=== PATIENT | male | born 1945 | race Caucasian/White ===

== ENCOUNTER → 2020-08-12 03:34 | Outpatient (CLI) | payer MEDICARE, SELFPAY ==
[2020-08-12 19:46] LABS: SARS-CoV-2 RNA PCR Negative
== END ==
PROVIDERS: PCP Internal Medicine Geriatric Medicine; Visit Provider Internal Medicine Gastroenterology
DX: Z01.812 Encounter for preprocedural laboratory examination (principal); Z20.822 Contact with and (suspected) exposure to COVID-19
CPT/HCPCS: C9803; U0003; U0005

== ENCOUNTER 2020-08-16 01:00 | Day surgery (SDC) | payer MEDICARE, SELFPAY ==
[2020-08-08 15:04] VITALS: BMI 32.5
[2020-08-16 08:20] VITALS: BP 123/68; PULSE 89; RESP 18; TEMP 36; O2SAT 98
[2020-08-16] MEDS: LACTATED RINGERS 1,000 ML 150 ML IV CONT (08:34)
--- NOTE | 2020-08-16 08:42 | WPDANESEPPF ---
Anes - Initial Pre Proc Eval Procedure: Operation Date: 08/16/20 09:00 Proposed Procedures p Esophagogastroduodenoscopy And Screening Colonoscopy - Shmuel Starkey MD Date/Time: 08/16/20 08:42 Surgeon: Shmuel Starkey MD Pre Op Diagnosis: Dysphagia, hx colon polyps, barretts esophagus Patient Data Age: 75 Gender: M Height: 6 ft Weight: 103.8 kg Last Vital Signs Temp 96.8 F L 08/16/20 08:20 Pulse 89 08/16/20 08:20 Resp 18 08/16/20 08:20 BP 123/68 08/16/20 08:20 Pulse Ox 98 08/16/20 08:20 Allergies Allergy/AdvReac Type Severity Reaction Status Date / Time No Known Allergies Allergy Verified 08/16/20 08:19 Home Medications Medication Instructions Recorded Confirmed Type aspirin 81 mg tablet,delayed 81 mg PO DAILY 05/15/20 08/08/20 History release dapagliflozin [Farxiga] 10 mg PO DAILY 08/08/20 08/08/20 History ergocalciferol (vitamin D2) 1,250 mcg PO WEEKLY 08/08/20 08/08/20 History [Vitamin D2] fenofibrate nanocrystallized 145 mg PO DAILY 08/08/20 08/08/20 History furosemide 20 mg PO DAILY 08/08/20 08/08/20 History pantoprazole 40 mg PO DAILY 08/08/20 08/08/20 History rosuvastatin 20 mg PO HS 08/08/20 08/08/20 History sacubitril-valsartan [Entresto] 1 tablet PO BID 08/08/20 08/08/20 History Patient hx anesthesia problems: none Family hx anesthesia problems: none PMFSH Past Medical History Medical History (Updated 08/16/20 @ 08:42 by Abraham Glynn MD) Adenomatous colon polyp Pearl esophagus Congestive heart failure (CHF) EF 40 per cent Hiatal hernia Hyperlipemia Hypertension Osteopenia Family History Family History Father Family history of diabetes mellitus in first degree relative Family history of coronary artery disease Mother Family history of malignant neoplasm of breast in first degree relative Other Family history of arthritis Hypertension Social History Social History (Reviewed 06/29/20 @ 08:50 by KIERSTEN Cannon Smoking packs per day: 2.5 Smoking cigarettes per day: 50.0 Years smoked: 30 Smoking pack-years: 75.00 Smoking status: Former smoker Tobacco type: cigarettes Smoking end date: 03/17/94 Alcohol intake: never Substance use: never Substance use type: does not use Living arrangements: with family Gender identity (if verbalized by the patient): Male Spiritual care concerns: No Anes - Eval Final PreProcedure Day of Procedure 08/16/20 08:42 Patient weight: obese Heart: regular rate and rhythm Lungs: clear to auscultation Airway: Mallampati scale class II Neurological: alert and oriented Last oral intake: >/= 8 hours ASA classification: III Emergent: no Anesthetic plan: proceed Anesthesia type and monitoring: general GIVS and standard monitoring Informed Consent: The patient's anesthetic plan and its attendant risks and benefits were discussed with the patient/family/POA. Questions were solicited and answers provided to the satisfaction of the patient/family/POA.
--- NOTE | 2020-08-16 08:53 | PM.HPGS ---
History of Present Illness History of Present Illness Consent: Risks, benefits, and alternatives have been discussed and questions answered. Patient agrees to proceed with procedure. Chief complaint: Dysphagia, hx colon polyps, barretts esophagus Narrative: Nic Louis is a 75 year old male here for egd and colonoscopy, had high grade dysplasia Pearl's (nodular area) successfully treated with EMR in 2018 at [facility] had follow-up EGD with no residual lesion, also had dilation of site with TTS balloon 20mm (had mild stenosis post-EMR) later in 2018, using protonix. Lately with dysphagia to solids. Also had colon polyps. Review of Systems Constitutional: Constitutional: Denies headache(s) and Denies weakness Eyes: Eyes: Denies blurry vision ENT: Reports Normal hearing present, Denies headache(s) and Denies neck pain Cardiovascular: Cardiovascular: Denies chest pain and Denies dyspnea Respiratory: Respiratory: Denies dyspnea Gastrointestinal: Gastrointestinal: Reports no additional gastrointestinal complaints Genitourinary: Genitourinary: Denies dysuria Musculoskeletal: Musculoskeletal: Denies neck pain Integumentary/Breasts: Skin/Breast: Denies dry skin Neurologic: Reports Normal hearing present, Denies headache(s) and Denies weakness Psychiatric: Psychiatric: Denies anxiety Endocrine: Endocrine: Denies change in body appearance Hematologic/Lymphatic: Hematologic/Lymphatic: Denies easy bleeding Allergic/Immunologic: Allergic/Immunologic: Denies urticaria PMF Past Medical History Medical History (Updated 08/16/20 @ 08:54 by Shmuel Starkey MD) Adenomatous colon polyp Pearl esophagus Congestive heart failure (CHF) EF 40 per cent Dysphagia Hiatal hernia Hyperlipemia Hypertension Osteopenia Family History Family History Father Family history of diabetes mellitus in first degree relative Family history of coronary artery disease Mother Family history of malignant neoplasm of breast in first degree relative Other Family history of arthritis Hypertension Social History Social History Smoking packs per day: 2.5 Smoking cigarettes per day: 50.0 Years smoked: 30 Smoking pack-years: 75.00 Smoking status: Former smoker Tobacco type: cigarettes Smoking end date: 03/17/94 Alcohol intake: never Substance use: never Substance use type: does not use Living arrangements: with family Gender identity (if verbalized by the patient): Male Spiritual care concerns: No Meds Home Medications and Allergies Home Medications Medication Instructions Recorded Confirmed Type aspirin 81 mg tablet,delayed 81 mg PO DAILY 05/15/20 08/08/20 History release dapagliflozin [Farxiga] 10 mg PO DAILY 08/08/20 08/08/20 History ergocalciferol (vitamin D2) 1,250 mcg PO WEEKLY 08/08/20 08/08/20 History [Vitamin D2] fenofibrate nanocrystallized 145 mg PO DAILY 08/08/20 08/08/20 History furosemide 20 mg PO DAILY 08/08/20 08/08/20 History pantoprazole 40 mg PO DAILY 08/08/20 08/08/20 History rosuvastatin 20 mg PO HS 08/08/20 08/08/20 History sacubitril-valsartan [Entresto] 1 tablet PO BID 08/08/20 08/08/20 History Allergies Allergy/AdvReac Type Severity Reaction Status Date / Time No Known Allergies Allergy Verified 08/16/20 08:19 Vital Signs Vital Signs - 24 hr 08/16/20 08:20 Temperature 96.8 F L Pulse Rate 89 Respiratory Rate 18 Blood Pressure 123/68 Pulse Oximetry 98 Exam Const: General: comfortable and no acute distress HENMT: General nose exam: Normal nares present Eyes: General: appearance normal, both eyes and all related structures Neck: Neck: no JVD Resp: Auscultation: clear to auscultation bilaterally Cardio: Rate: regular rate Rhythm: regular rhythm GI: Inspection: non-distended GI Palp: Yes Soft to palpation
[2020-08-16] MEDS: BENZOCAINE (*SP) 60 ML SPRAY CAN (HURRICAINE) 1 SPRAY MUCOUS MEM (09:02)
[2020-08-16 09:32] VITALS: BP 124/73; PULSE 71; RESP 15; O2SAT 95
[2020-08-16 09:42] VITALS: BP 132/92; PULSE 72; RESP 15; O2SAT 98
[2020-08-16 09:52] VITALS: BP 124/82; PULSE 69; RESP 15; O2SAT 98
== END 2020-08-16 10:08 | disposition home or self-care (01) ==
PROVIDERS: PCP Internal Medicine Geriatric Medicine; Visit Provider Internal Medicine Gastroenterology
PROC: 0DJ08ZZ Inspection of Upper Intestinal Tract, Via Natural or Artificial Opening Endoscopic (ICD-10-PCS; CPT 43235; principal; 2020-08-16 09:00)
DX: Z12.11 Encounter for screening for malignant neoplasm of colon (principal); K63.89 Other specified diseases of intestine; D12.3 Benign neoplasm of transverse colon; K64.8 Other hemorrhoids; K21.00 Gastro-esophageal reflux disease with esophagitis, without bleeding; K22.2 Esophageal obstruction; K29.50 Unspecified chronic gastritis without bleeding; K44.9 Diaphragmatic hernia without obstruction or gangrene; I11.0 Hypertensive heart disease with heart failure; I50.9 Heart failure, unspecified; E78.5 Hyperlipidemia, unspecified; M85.80 Other specified disorders of bone density and structure, unspecified site; Z79.82 Long term (current) use of aspirin; Z87.891 Personal history of nicotine dependence; E66.9 Obesity, unspecified; Z68.31 Body mass index [BMI] 31.0-31.9, adult
CPT/HCPCS: 45385; 43249; 43239; 88305; 88312; C1726; C9803; J2704; J7120; U0003; U0005

== ENCOUNTER 2022-06-10 18:10 | Emergency (ER) | payer MEDICARE, SELFPAY ==
--- NOTE | ~2022-06-10 | XR_ITS ---
EXAMINATION: XR knee LT min 4V DATE: 06/10/2022 18:39 INDICATION: Left knee pain TECHNIQUE: Four views of the left knee were obtained. COMPARISON: 01/05/2008 FINDINGS: Alignment is normal. No fracture or osteochondral lesion. There is moderate tricompartmenta l osteoarthritis. No joint effusion/synovitis. There is soft tissue swelling of the knee. Calcified atherosclerosis is noted. IMPRESSION: 1. No acute osseous abnormality. Reviewed, dictated and finalized at location F.
--- NOTE | ~2022-06-10 | CT_ITS ---
EXAMINATION: CT brain wo con INDICATION: Head injury COMPARISON: None TECHNIQUE: Standard unenhanced head CT. The dose-length product (DLP) was 681.00 mGy-cm. The mA was a djusted according to patient size. Iterative reconstruction technique was employed. FINDINGS: There is no intracranial hemorrhage, acute infarction, or abnormal mass lesion. The ventric les are normal. There is no abnormal mass effect or midline shift. The tai-white matter differentiat ion is normal. The basal cisterns are patent. The orbits are normal. There is a left periorbital ko faraz. The paranasal sinuses, mastoids and calvarium are normal. IMPRESSION: 1. No acute intracranial abnormality. Reviewed, dictated and finalized at location F.
--- NOTE | ~2022-06-10 | CT_ITS ---
EXAMINATION: CT facial bones wo con DATE: 06/10/2022 18:46 INDICATION: Head injury TECHNIQUE: Computed tomography (CT) of the facial bones and maxillofacial region was performed withou t intravenous contrast. The dose-length product (DLP) was 443.17 mGy-cm. Automated exposure control a nd iterative reconstruction technique were employed. COMPARISON: None. FINDINGS: There is a left periorbital and frontal scalp hematoma. No facial fracture is identified. T he globes and orbits are normal. There is mild mucosal thickening of the right maxillary sinus. Moder ate cervical spondylosis is noted. IMPRESSION: 1. Left periorbital and frontal scalp hematoma without acute facial fracture. Reviewed, dictated and finalized at location F.
[2022-06-10 18:07] VITALS: BP 113/73; PULSE 72; RESP 16; TEMP 36.8; O2SAT 100
--- NOTE | 2022-06-10 18:17 | PC.NURSE ---
Patient does not have a med list. Patient unsure of what medications he is on and cannot verify which blood thinner he takes. [facility] in [place], [place] contacted.
--- NOTE | 2022-06-10 18:25 | ED.FALL ---
HPI - Fall General Chief Complaint: Fall Stated Complaint: GLF, head inj Time Seen by Provider: 06/10/22 18:10 History of Present Illness HPI Narrative: 77-year-old male reports for a mechanical fall that occurred 20 minutes prior to arrival. Patient states he was at [facility] and was walking back to his truck which was parked on a hill, the cart started rolling away and he went to jone after it and tripped over his feet, landing on his face and head on the concrete. He is reporting a frontal headache over his left brow with 2 lacerations, abrasions to his left hand and nose, left knee pain. Denies LOC. Last tetanus shot unknown. States he is on a blood thinner but is unsure the name. Denies numbness, weakness, tingling, vision changes, neck pain or back pain, chest pain or abdominal pain, hip pain. Related Data Home Medications Medication Instructions Recorded Confirmed aspirin 81 mg tablet mg PO DAILY 06/10/22 cyclobenzaprine 10 mg tablet 10 mg PO TID PRN Pain 06/10/22 dapagliflozin 10 mg tablet mg 06/10/22 (Farxiga) hyoscyamine sulfate 0.125 mg mg 06/10/22 sublingual tablet oxycodone-acetaminophen 10 mg-325 tablet 06/10/22 mg tablet pravastatin 40 mg tablet 40 mg PO DAILY 06/10/22 sacubitril 49 mg-valsartan 51 mg tablet 06/10/22 tablet (Entresto) Allergies Allergy/AdvReac Type Severity Reaction Status Date / Time No Known Allergies Allergy Verified 06/10/22 18:14 Review of Systems Review of Systems: CONSTITUTIONAL: Denies fever, chills EYES: Denies visual changes, redness, or discharge. ENT: Denies rhinorrhea, congestion, sore throat, or otalgia. CARDIOVASCULAR: Denies chest pain, palpitations, or edema. RESPIRATORY: Denies cough or dyspnea. GASTROINTESTINAL: Denies abdominal pain, nausea, vomiting, or diarrhea. GENITOURINARY: Denies dysuria or hematuria. SKIN: Denies rash or itching. MUSCULOSKELETAL: Denies back pain, joint pain, or myalgia. NEUROLOGIC: Denies numbness, dizziness, or weakness. PSYCHIATRIC: Denies anxiety or depression. [facility] Past Medical History Medical History Adenomatous colon polyp Peral esophagus Congestive heart failure (CHF) EF 40 per cent Dysphagia Hiatal hernia Hyperlipemia Hypertension Osteopenia Family History Family History Father Family history of diabetes mellitus in first degree relative Family history of coronary artery disease Mother Family history of malignant neoplasm of breast in first degree relative Other Family history of arthritis Hypertension Social History Social History Smoking packs per day: 2.5 Smoking cigarettes per day: 50.0 Years smoked: 30 Smoking pack-years: 75.00 Smoking status: Former smoker Tobacco type: cigarettes Smoking end date: 03/17/94 Alcohol intake: never Substance use: never Substance use type: does not use Living arrangements: with family Occupation/Education: retired Gender identity (if verbalized by the patient): Male Spiritual care concerns: No Exam Narrative: GENERAL: Well-appearing, well-nourished, and in no acute distress. Patient resting comfortably in the exam bed. He is pleasant and conversational. HEAD: Normocephalic. No lesions or abrasions to scalp. Tenderness over the left brow bone. No tenderness to nose or orbits. No muniz signs or raccoon eyes EYES: PERRLA and EOMI. no pain with EOMs. ENT: Nares clear, no rhinorrhea or epistaxis. Mucous membranes moist. Oropharynx without tonsillar hypertrophy exudate or other lesions. Bilateral TMs pearly tai nonbulging. No hemotympanum. NECK: Supple. No adenopathy or masses. No midline vertebral tenderness, step-offs or deformities. No paraspinous tenderness. CHEST: Clear to auscultation. No respiratory distress. No wheezes rales or rhonc
[2022-06-10] MEDS: TETANUS,DIPHTHERIA,AC PERTUSSIS ADULT (0.5 ML) BOOSTRIX IM (19:07)
[2022-06-10] MEDS: LIDOCAINE HCL 1% LOCAL INJ 10 ML VIAL 5 ML INFILTRATE (19:36)
[2022-06-10] MEDS: ACETAMINOPHEN 500 MG TABLET 1000 MG PO (20:01)
== END 2022-06-10 20:42 | disposition home or self-care (01) ==
PROVIDERS: Emergency Provider Physician Assistant; PCP Internal Medicine Geriatric Medicine
DX: S01.112A Laceration without foreign body of left eyelid and periocular area, initial encounter (principal); Z23 Encounter for immunization; E78.5 Hyperlipidemia, unspecified; I50.9 Heart failure, unspecified; I11.0 Hypertensive heart disease with heart failure; K22.70 Barrett's esophagus without dysplasia; M85.80 Other specified disorders of bone density and structure, unspecified site; Z86.010 Personal history of colon polyps; Z87.891 Personal history of nicotine dependence; W01.0XXA Fall on same level from slipping, tripping and stumbling without subsequent striking against object, initial encounter
CPT/HCPCS: 12011; 70450; 70486; 73564; 90471; 90715; 99284; A9270

== ENCOUNTER 2022-09-25 00:44 | Day surgery (SDC) | payer MEDICARE, SELFPAY ==
[2022-07-05 09:12] VITALS: BMI 31.4
--- NOTE | 2022-07-26 06:44 | SUR.PREOP ---
Patients called and states that Nic is very dizzy and cant hardly stand up this morning. Instructed to come to ER if symptoms worsen. verbalizes understanding.
[2022-09-12 13:30] VITALS: BMI 31.4
[2022-09-25 09:03] VITALS: BP 101/68; PULSE 72; RESP 18; TEMP 36.1; O2SAT 100
[2022-09-25] MEDS: LACTATED RINGERS 1,000 ML 150 ML IV CONT (09:17)
--- NOTE | 2022-09-25 09:35 | WPDANESEPPF ---
Anes - Initial Pre Proc Eval Procedure: Operation Date: 09/25/22 10:15 Proposed Procedures p Esophagogastroduodenoscopy - Shmuel Starkey MD Date/Time: 09/25/22 09:35 Surgeon: Shmuel Starkey MD Pre Op Diagnosis: dysphagia Patient Data Age: 77 Gender: M Height: 1.83 m Weight: 92.3 kg Last Vital Signs Temp 97 F L 09/25/22 09:03 Pulse 72 09/25/22 09:03 Resp 18 09/25/22 09:03 BP 101/68 09/25/22 09:03 Pulse Ox 100 09/25/22 09:03 O2 Del Method Room Air 09/25/22 09:03 Allergies Allergy/AdvReac Type Severity Reaction Status Date / Time No Known Allergies Allergy Verified 09/25/22 09:02 Home Medications Medication Instructions Recorded Confirmed Type aspirin 81 mg tablet 81 mg PO DAILY 06/10/22 07/05/22 History dapagliflozin propanediol 10 mg 10 mg PO DAILY 06/10/22 07/05/22 History tablet (Farxiga) hyoscyamine sulfate 0.125 mg 0.125 mg sublingual DAILY 06/10/22 07/05/22 History sublingual tablet oxycodone-acetaminophen 10 mg-325 10 tablet PO PRN 06/10/22 07/05/22 History mg tablet pravastatin 40 mg tablet 40 mg PO DAILY 06/10/22 07/05/22 History sacubitril 49 mg-valsartan 51 mg 49 tablet PO BID 06/10/22 07/05/22 History tablet (Entresto) metoprolol succinate 200 mg 200 mg PO DAILY 07/05/22 07/17/22 History tablet,extended release 24 hr Patient hx anesthesia problems: none Family hx anesthesia problems: none Results Review: All pre-operative results and documents have been reviewed as part of the pre-operative evaluation. [facility] Past Medical History Medical History Adenomatous colon polyp Pearl esophagus Congestive heart failure (CHF) EF 40 per cent Dysphagia Hiatal hernia Hyperlipemia Hypertension Osteopenia Family History Family History Father Family history of diabetes mellitus in first degree relative Family history of coronary artery disease Mother Family history of malignant neoplasm of breast in first degree relative Other Family history of arthritis Hypertension Social History Social History Smoking packs per day: 2.5 Smoking cigarettes per day: 50.0 Years smoked: 30 Smoking pack-years: 75.00 Smoking status: Never smoker Tobacco type: cigarettes Smoking end date: 03/17/94 Alcohol intake: never Substance use: never Substance use type: does not use Living arrangements: with family Occupation/Education: retired Gender identity (if verbalized by the patient): Male Spiritual care concerns: No Anes - Eval Final PreProcedure Day of Procedure 09/25/22 09:36 Patient weight: normal Heart: regular rate and rhythm Lungs: clear to auscultation Airway: Mallampati scale class III Neurological: alert and oriented Last oral intake: >/= 8 hours ASA classification: III Emergent: no Anesthetic plan: proceed Anesthesia type and monitoring: general GIVS and standard monitoring Results Review: All pre-operative results and documents have been reviewed as part of the pre-operative evaluation. Informed Consent: The patient's anesthetic plan and its attendant risks and benefits were discussed with the patient/family/POA. Questions were solicited and answers provided to the satisfaction of the patient/family/POA.
--- NOTE | 2022-09-25 09:56 | PM.HPGS ---
History of Present Illness History of Present Illness Consent: Risks, benefits, and alternatives have been discussed and questions answered. Patient agrees to proceed with procedure. Chief complaint: dysphagia Narrative: Nic Louis is a 77 year old male here for another egd, had high grade dysplasia Pearl's (nodular area) successfully treated with EMR in 2018 at [facility] had follow-up EGD with no residual lesion, also had dilation of site with TTS balloon 20mm (had mild stenosis post-EMR) later in 2017, repeat EGD 2020 with no signs of Pearl's, had reflux and dilated up to 18mm. Review of Systems Constitutional: Constitutional: Denies headache(s) and Denies weakness Eyes: Eyes: Denies blurry vision ENT: Reports Normal hearing present, Denies headache(s) and Denies neck pain Cardiovascular: Cardiovascular: Denies chest pain and Denies dyspnea Respiratory: Respiratory: Denies dyspnea Gastrointestinal: Gastrointestinal: Reports no additional gastrointestinal complaints Genitourinary: Genitourinary: Denies dysuria Musculoskeletal: Musculoskeletal: Denies neck pain Integumentary/Breasts: Skin/Breast: Denies dry skin Neurologic: Reports Normal hearing present, Denies headache(s) and Denies weakness Psychiatric: Psychiatric: Denies anxiety Endocrine: Endocrine: Denies change in body appearance Hematologic/Lymphatic: Hematologic/Lymphatic: Denies easy bleeding Allergic/Immunologic: Allergic/Immunologic: Denies urticaria PMFSH Past Medical History Medical History Adenomatous colon polyp Pearl esophagus Congestive heart failure (CHF) EF 40 per cent Dysphagia Hiatal hernia Hyperlipemia Hypertension Osteopenia Family History Family History Father Family history of diabetes mellitus in first degree relative Family history of coronary artery disease Mother Family history of malignant neoplasm of breast in first degree relative Other Family history of arthritis Hypertension Social History Social History Smoking packs per day: 2.5 Smoking cigarettes per day: 50.0 Years smoked: 30 Smoking pack-years: 75.00 Smoking status: Never smoker Tobacco type: cigarettes Smoking end date: 03/17/94 Alcohol intake: never Substance use: never Substance use type: does not use Living arrangements: with family Occupation/Education: retired Gender identity (if verbalized by the patient): Male Spiritual care concerns: No Meds Home Medications and Allergies Home Medications Medication Instructions Recorded Confirmed Type aspirin 81 mg tablet 81 mg PO DAILY 06/10/22 07/05/22 History dapagliflozin propanediol 10 mg 10 mg PO DAILY 06/10/22 07/05/22 History tablet (Farxiga) hyoscyamine sulfate 0.125 mg 0.125 mg sublingual DAILY 06/10/22 07/05/22 History sublingual tablet oxycodone-acetaminophen 10 mg-325 10 tablet PO PRN 06/10/22 07/05/22 History mg tablet pravastatin 40 mg tablet 40 mg PO DAILY 06/10/22 07/05/22 History sacubitril 49 mg-valsartan 51 mg 49 tablet PO BID 06/10/22 07/05/22 History tablet (Entresto) metoprolol succinate 200 mg 200 mg PO DAILY 07/05/22 07/17/22 History tablet,extended release 24 hr Allergies Allergy/AdvReac Type Severity Reaction Status Date / Time No Known Allergies Allergy Verified 09/25/22 09:02 Vital Signs Vital Signs - 24 hr 09/25/22 09:03 Temperature 97 F L Pulse Rate 72 Respiratory Rate 18 Blood Pressure 101/68 Pulse Oximetry 100 Oxygen Delivery Room Air Exam Const: General: comfortable and no acute distress HENMT: Face/Nose/Sinus: Normal nares present Eyes: General: appearance normal, both eyes and all related structures Neck: Neck: no JVD Resp: Auscultation: clear to auscultation bilaterally Cardio: Rate: regular rate
[2022-09-25 10:12] VITALS: BP 113/54; PULSE 68; RESP 20; O2SAT 93
[2022-09-25 10:22] VITALS: BP 102/60; PULSE 62; RESP 18; O2SAT 97
[2022-09-25 10:32] VITALS: BP 108/61; PULSE 64; RESP 19; O2SAT 100
== END 2022-09-25 10:45 | disposition home or self-care (01) ==
PROVIDERS: PCP Internal Medicine Geriatric Medicine; Visit Provider Internal Medicine Gastroenterology
PROC: 0DJ08ZZ Inspection of Upper Intestinal Tract, Via Natural or Artificial Opening Endoscopic (ICD-10-PCS; CPT 43235; principal; 2022-09-25 10:15)
DX: K21.9 Gastro-esophageal reflux disease without esophagitis (principal); K22.2 Esophageal obstruction; K44.9 Diaphragmatic hernia without obstruction or gangrene; Z87.19 Personal history of other diseases of the digestive system; I11.0 Hypertensive heart disease with heart failure; I50.9 Heart failure, unspecified; E78.5 Hyperlipidemia, unspecified; Z79.82 Long term (current) use of aspirin; Z79.84 Long term (current) use of oral hypoglycemic drugs; Z87.891 Personal history of nicotine dependence
CPT/HCPCS: 43249; 88305; C1726; J2704; J7120

== ENCOUNTER 2023-01-21 09:50 | Outpatient (CLI) | payer MEDICARE, SELFPAY ==
--- NOTE | 2023-01-21 11:00 | NEURO_ITS ---
Impression: # Complains of numbness of left hand with decreased grasp. 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 # Abnormal Needle/EMG exam of left 1st DI and ADM with denervation changes. Nerve Conduction Studies Anti Sensory Summary Table Stim Site NR Peak (ms) P-T Amp (?V) Site1 Site2 Delta-P (ms) Dist (cm) Silvio (m/s) Left Median Anti Sensory (2-3nd Digit) Wrist 3.5 24.0 Wrist 2-3nd Digit 3.5 14.0 40 Wrist 4.0 33.7 Wrist 2-3nd Digit 3.5 14.0 40 Left Radial Anti Sensory (Base 1st Digit) Wrist 2.5 15.0 Wrist Base 1st Digit 2.5 0.0 Left Ulnar Anti Sensory (5th Digit) Wrist 3.7 22.9 Wrist 5th Digit 3.7 14.0 38 Motor Summary Table Stim Site NR Onset (ms) O-P Amp (mV) Site1 Site2 Delta-0 (ms) Dist (cm) Silvio (m/s) Left Median Motor (Abd Poll Brev) Wrist 3.8 1.2 Elbow Wrist 6.7 35.0 52 Elbow 10.5 0.3 Left Ulnar Motor (Abd Dig Minimi) Wrist 3.4 2.7 A Elbow Wrist 9.0 30.0 33 A Elbow 12.4 1.6 B Elbow Wrist 4.6 23.0 50 B Elbow 8.0 1.6 F Wave Studies NR F-Lat (ms) L-R F-Lat (ms) Left Median (Mrkrs) (Abd Poll Brev) 31.33 Left Ulnar (Mrkrs) (Abd Dig Min) 28.29 EMG Side Muscle Nerve Root Ins Act Fibs Amp Dur Recrt Comment Left 1stDorInt Ulnar C8-T1 Nml Nml Nml >12ms Reduced Left Ext Indicis Radial (Post Int) C7-8 Nml Nml Nml Nml Nml Left Ext Digitorum Radial (Post Int) C7-8 Nml Nml Nml Nml Nml Left BrachioRad Radial C5-6 Nml Nml Nml Nml Nml Left PronatorTeres Median C6-7 Nml Nml Nml Nml Nml Left Abd Poll Brev Median C8-T1 Nml Nml Nml Nml Nml Left ABD Dig Min Ulnar C8-T1 Nml Nml Nml >12ms Reduced MTDD
== END 2023-01-21 09:51 | disposition home or self-care (01) ==
LOC: ANHNEURO 09:52
PROVIDERS: PCP Internal Medicine Geriatric Medicine; Visit Provider Internal Medicine Geriatric Medicine
DX: G56.21 Lesion of ulnar nerve, right upper limb (principal)
CPT/HCPCS: 95886; 95909

== ENCOUNTER 2023-07-06 12:20 | Day surgery (SDC) | payer MEDICARE, SELFPAY ==
--- NOTE | ~2023-07-06 | CT_ITS ---
EXAMINATION: CT chest abdomen pelvis wo con DATE: 07/06/2023 13:48 INDICATION: Vomiting. TECHNIQUE: Computed tomography (CT) of the chest, abdomen, and pelvis was performed without intraveno us contrast. Automated exposure control and iterative reconstruction technique were employed. The dos e-length product was 888.46 mGy-cm. COMPARISON: CT 03/11/2018 FINDINGS: CHEST CT: There is mild scarring at the lung apices. There is mild atelectasis bilaterally. Calcified bilateral lung nodules are consistent with old granulomatous disease. No pleural effusion. The heart size is n ormal. There are coronary artery calcifications. No pericardial effusion. There is bilateral gynecoma stia. There is a large sliding hiatal hernia. There is food in the distal esophagus. There is fluid i n the esophagus. There is severe cervical and thoracic spondylosis. There is mild chronic anterior we dging of multiple vertebral bodies. ABDOMEN/PELVIS CT: The liver and spleen are normal. There are changes of prior cystectomy. The pancreas, adrenal glands, and kidneys are normal. There is no urolithiasis. There is calcified atherosclerosis of the aorta an d many of the other arteries. There is a left inguinal hernia containing fat. There are no dilated lo ops of bowel. The appendix is normal. There are no pathologically enlarged lymph nodes. There is no f ree intraperitoneal fluid. There is severe lumbar spondylosis. IMPRESSION: 1. Food in the esophagus. 2. Large sliding hiatal hernia. Reviewed, dictated and finalized at location E.
[2023-07-06 12:43] VITALS: BP 120/81; PULSE 97; RESP 18; TEMP 36.2; O2SAT 100
[2023-07-06 13:32] LABS: Basophils Absolute Auto 0.1 K/mm3 (0.0-0.1); Basophils Percent Auto 0.6 % (0.2-1.2); Eosinophils Absolute Auto 0.4 K/mm3 (0-0.3); Eosinophils Percent Auto 4.6 % (0-4.4); Hematocrit 38.1 % (42.0-52.0); Hemoglobin 12.5 g/dL (14.0-18.0); Immature Granulocyte Absolute 0.04 K/mm3 (0.00-0.031); Immature Granulocyte Percent A 0.4 % (0-0.5); Lymphocytes Absolute Auto 2.15 K/mm3 (0.9-3.2); Lymphocytes Percent Auto 22.6 % (18.3-44.2); Mean Corpuscular HGB Conc 32.8 g/dl (32-36); Mean Corpuscular Hemoglobin 31.8 pg (26-34); Mean Corpuscular Volume 96.9 fl (80-100); Monocytes Absolute Auto 0.6 K/mm3 (0.1-0.6); Monocytes Percent Auto 6.7 % (2.6-8.5); Neutrophils Absolute Auto 6.2 K/mm3 (1.3-6.7); Neutrophils Percent Auto 65.1 % (45.5-73.1); Platelet Count Result 194 k/mm3 (150-375); Red Blood Count 3.93 M/mm3 (4.6-6.20); Red Cell Distribution Width 13.8 % (11.5-14.5); White Blood Count 9.5 K/mm3 (4.5-10.0)
[2023-07-06 13:41] LABS: Alanine Aminotransferase 18 U/L (6-50); Albumin Level 4.8 g/dL (3.5-5.1); Alkaline Phosphatase 85 U/L (38-126); Anion Gap 13 mmol/L (4-12); Aspartate Amino Transferase 28 U/L (17-59); Bilirubin,Total 1.1 mg/dL (0.2-1.3); Blood Urea Nitrogen 35 mg/dL (9-20); Calcium 10.2 mg/dL (8.4-10.2); Carbon Dioxide 17 mmol/L (22-30); Chloride 111 mmol/L (98-107); Estimated CRCL calculation 37 ml/min; Estimated Glomerular Filt Rate 39; Glucose 107 mg/dL (65-110); Potassium 4.1 mmol/L (3.4-5.0); Sodium 141 mmol/L (137-145)
[2023-07-06 13:42] LABS: Magnesium 2.3 mg/dL (1.6-2.3)
[2023-07-06] MEDS: SODIUM CHLORIDE 0.9% IV 1,000 ML 999 ML IV CONT (13:53)
[2023-07-06] MEDS: ONDANSETRON INJ 4 MG/2 ML VIAL IV PUSH ×2 (13:53→15:05)
[2023-07-06] MEDS: GLUCAGON FOR INJ 1 MG VIAL IM (15:06)
--- NOTE | 2023-07-06 15:27 | ED.NAVMDI ---
HPI - Nausea/Vomiting/Diarrhea General Chief complaint: Nausea/Vomiting/Diarrhea Stated complaint: unable to eat for three days Time Seen by Provider: 07/06/23 12:47 History of Present Illness HPI Narrative: This is a 78-year-old male, with history of esophageal stricture with last dilation performed in September of last year, who presents to the emergency department complaining of difficulty swallowing and vomiting for the past 3 days. The patient states 3 days ago, he was eating a pulled pork sandwich, when he felt a sensation of food getting stuck. He initially had vomiting when drinking fluids, though today it progressed to being unable to keep down his own saliva. He has no other complaints today. Related Data Home Medications Medication Instructions Recorded Confirmed aspirin 81 mg tablet 81 mg PO DAILY 06/10/22 07/06/23 dapagliflozin propanediol 10 mg 10 mg PO DAILY 06/10/22 07/06/23 tablet (Farxiga) hyoscyamine sulfate 0.125 mg 0.125 mg sublingual DAILY 06/10/22 07/06/23 sublingual tablet oxycodone-acetaminophen 10 mg-325 10 tablet PO PRN 06/10/22 07/06/23 mg tablet pravastatin 40 mg tablet 40 mg PO DAILY 06/10/22 07/06/23 sacubitril 49 mg-valsartan 51 mg 49 tablet PO BID 06/10/22 07/06/23 tablet (Entresto) metoprolol succinate 200 mg 200 mg PO DAILY 07/05/22 07/06/23 tablet,extended release 24 hr Allergies Allergy/AdvReac Type Severity Reaction Status Date / Time No Known Allergies Allergy Verified 07/06/23 18:19 Review of Systems Review of Systems: CONSTITUTIONAL: Denies fever, chills, or sweats. EYES: Denies visual changes, redness, or discharge. ENT: Denies rhinorrhea, congestion, sore throat, or otalgia. CARDIOVASCULAR: Denies chest pain, palpitations, or edema. RESPIRATORY: Denies cough or dyspnea. GASTROINTESTINAL: Vomiting Denies abdominal pain, nausea, or diarrhea. GENITOURINARY: Denies dysuria or hematuria. SKIN: Denies rash or itching. MUSCULOSKELETAL: Denies back pain, joint pain, or myalgia. NEUROLOGIC: Denies headache, numbness, dizziness, or weakness. PSYCHIATRIC: Denies anxiety or depression. FORMERLY [facility], [facility] Past Medical History Medical History Adenomatous colon polyp Pearl esophagus Congestive heart failure (CHF) EF 40 per cent Dysphagia Food impaction of esophagus Hiatal hernia Hyperlipemia Hypertension Osteopenia Family History Family History Father Family history of diabetes mellitus in first degree relative Family history of coronary artery disease Mother Family history of malignant neoplasm of breast in first degree relative Other Family history of arthritis Hypertension Social History Social History Smoking packs per day: 2.5 Smoking cigarettes per day: 50.0 Years smoked: 30 Smoking pack-years: 75.00 Smoking status: Never smoker Tobacco type: cigarettes Smoking end date: 03/17/94 Alcohol intake: never Substance use: never Substance use type: does not use Living arrangements: with family Occupation/Education: retired Gender identity (if verbalized by the patient): Male Spiritual care concerns: No Exam Narrative: GENERAL: Well-developed, well-nourished, and in no acute distress. The patient intermittently Spitz saliva into a emesis bag. There is no noted active drooling. HEAD: Normocephalic, atraumatic. EYES: PERRLA and EOMI. CHEST: Clear to auscultation. No respiratory distress. No wheezes rales or rhonchi HEART: Regular rate and rhythm. No murmur heard. Normal peripheral pulses. ABDOMEN: Soft, nontender, nondistended, normal active bowel sounds. EXTREMITIES: Normal range of motion. No edema. SKIN: Warm, dry, no rash. NEURO: Alert and oriented x3. No focal deficit. Moving all 4 limbs spontaneously PSYCH: Normal mood and affect. Course Course Emergency Course: 15:29 - CBC demonstrates mild anemia with hemoglobin of 12.5 but is otherwise unremarkable. Chemistries demonstrate mild creatinine elevation of 1.7 with baseline of 1.3. CT abdomen pelvis demonstrates esophageal narrowing with a food bolus at the distal esophagus and hiatal hernia. I discussed these findings and trial of glucagon verses endoscopy and dilation with Dr. Galvez. Dr. Galvez advises to try glucagon and if unsuccessful will go to endoscopy suite. 16:30 - No significant effect with glucagon. I discussed the patient with Dr. Galvez who agrees to take the patient to endoscopy suite. I discussed the findings and recommendations with the patient and his spouse. They voiced understanding and agreement with the plan. All questions answered to their satisfaction. Vital Signs Vital signs: Vital Signs Temperature 97.1 F L 07/06/23 12:43 Pulse Rate 97 07/06/23 12:43 Respiratory Rate 18 07/06/23 12:43 Blood Pressure 120/81 07/06/23 12:43 Pulse Oximetry 100 07/06/23 12:43 Temperature 97.5 F L 07/06/23 18:31 Pulse Rate 77 07/06/23 18:51 Respiratory Rate 16 07/06/23 18:51 Blood Pressure 136/68 07/06/23 18:51 Pulse Oximetry 99 07/06/23 18:51 Oxygen Delivery Room Air 07/06/23 18:51 MDM - Nausea/Vomiting/Diarrhea MDM Narrative Medical decision making narrative: Plan: Labs, imaging, GI consultation, reassess Differential Diagnosis Differential diagnosis: Likely other (Esophageal stricture, esophageal mass, esophageal spasm, fluid bolus, other) Lab Data 07/06/23 13:24 07/06/23 13:24 Labs: Lab Results 07/06/23 Range/Units 13:24 WBC 9.5 (4.5-10.0) K/mm3 RBC 3.93 L (4.6-6.20) M/mm3 Hgb 12.5 L (14.0-18.0) g/dL Hct 38.1 L (42.0-52.0) % MCV 96.9 (80-100) fl MCH 31.8 (26-34) pg MCHC 32.8 (32-36) g/dl RDW 13.8 (11.5-14.5) % Plt Count 194 (150-375) k/mm3 MPV 9.0 (7.4-10.4) fl Immature Gran % (Auto) 0.4 (0-0.5) % Neut % (Auto) 65.1 (45.5-73.1) % Lymph % (Auto) 22.6 (18.3-44.2) % [place] % (Auto) 6.7 (2.6-8.5) % Eos % (Auto) 4.6 H (0-4.4) % Baso % (Auto) 0.6 (0.2-1.2) % Lymph # (Auto) 2.15 (0.9-3.2) K/mm3 [place] # (Auto) 0.6 (0.1-0.6) K/mm3 Eos # (Auto) 0.4 H (0-0.3) K/mm3 Baso # (Auto) 0.1 (0.0-0.1) K/mm3 Abs Immat Gran (auto) 0.04 H (0.00-0.031) K/mm3 Absolute Neuts (auto) 6.2 (1.3-6.7) K/mm3 Absolute Nucleated RBC 0.000 (0.0-0.012) K/mm3 Nucleated RBC % 0.0 (0.0-0.2) % Sodium 141 (137-145) mmol/L Potassium 4.1 (3.4-5.0) mmol/L Chloride 111 H (98-107) mmol/L Carbon Dioxide 17 L (22-30) mmol/L Anion Gap 13 H (4-12) mmol/L BUN 35 H (9-20) mg/dL Creatinine 1.70 H (0.7-1.3) mg/dL Estim Creat Clear Calc 37 ml/min Estimated GFR 39 L (59 - ) Glucose 107 (65-110) mg/dL Calcium 10.2 (8.4-10.2) mg/dL Magnesium 2.3 (1.6-2.3) mg/dL Total Bilirubin 1.1 (0.2-1.3) mg/dL AST 28 (17-59) U/L ALT 18 (6-50) U/L Alkaline Phosphatase 85 (38-126) U/L Total Protein 8.0 (6.3-8.2) g/dL Albumin 4.8 (3.5-5.1) g/dL Discharge Plan Discharge Clinical Impression: Food impaction of esophagus Qualifiers: Encounter type: initial encounter Qualified Code(s): T18.128A - Food in esophagus causing other injury, initial encounter Pearl esophagus Qualifiers: 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
[2023-07-06 15:45] VITALS: BP 136/77; PULSE 88; RESP 16; O2SAT 100
--- NOTE | 2023-07-06 17:19 | WPDANESEPP ---
Anes - Eval Pre Procedure Procedure: EGD Date/Time: 07/06/23 17:19 Pre Op Diagnosis: unable to eat for three days Patient Data Age: 78 Gender: M Height: 1.83 m Weight: 100 kg Last Vital Signs Temp 36.2 C L 07/06/23 12:43 Pulse 88 07/06/23 15:45 Resp 16 07/06/23 15:45 BP 136/77 07/06/23 15:45 Pulse Ox 100 07/06/23 15:45 Allergies Allergy/AdvReac Type Severity Reaction Status Date / Time No Known Allergies Allergy Verified 09/25/22 09:02 Home Medications Medication Instructions Recorded Confirmed Type aspirin 81 mg tablet 81 mg PO DAILY 06/10/22 07/05/22 History dapagliflozin propanediol 10 mg 10 mg PO DAILY 06/10/22 07/05/22 History tablet (Farxiga) hyoscyamine sulfate 0.125 mg 0.125 mg sublingual DAILY 06/10/22 07/05/22 History sublingual tablet oxycodone-acetaminophen 10 mg-325 10 tablet PO PRN 06/10/22 07/05/22 History mg tablet pravastatin 40 mg tablet 40 mg PO DAILY 06/10/22 07/05/22 History sacubitril 49 mg-valsartan 51 mg 49 tablet PO BID 06/10/22 07/05/22 History tablet (Entresto) metoprolol succinate 200 mg 200 mg PO DAILY 07/05/22 07/17/22 History tablet,extended release 24 hr Laboratory Tests 07/06/23 13:24 WBC 9.5 K/mm3 (4.5-10.0) RBC 3.93 L M/mm3 (4.6-6.20) Hgb 12.5 L g/dL (14.0-18.0) Hct 38.1 L % (42.0-52.0) MCV 96.9 fl (80-100) MCH 31.8 pg (26-34) MCHC 32.8 g/dl (32-36) RDW 13.8 % (11.5-14.5) Plt Count 194 k/mm3 (150-375) MPV 9.0 fl (7.4-10.4) Immature Gran % (Auto) 0.4 % (0-0.5) Neut % (Auto) 65.1 % (45.5-73.1) Lymph % (Auto) 22.6 % (18.3-44.2) [place] % (Auto) 6.7 % (2.6-8.5) Eos % (Auto) 4.6 H % (0-4.4) Baso % (Auto) 0.6 % (0.2-1.2) Lymph # (Auto) 2.15 K/mm3 (0.9-3.2) [place] # (Auto) 0.6 K/mm3 (0.1-0.6) Eos # (Auto) 0.4 H K/mm3 (0-0.3) Baso # (Auto) 0.1 K/mm3 (0.0-0.1) Abs Immat Gran (auto) 0.04 H K/mm3 (0.00-0.031) Absolute Neuts (auto) 6.2 K/mm3 (1.3-6.7) Absolute Nucleated RBC 0.000 K/mm3 (0.0-0.012) Nucleated RBC % 0.0 % (0.0-0.2) Sodium 141 mmol/L (137-145) Potassium 4.1 mmol/L (3.4-5.0) Chloride 111 H mmol/L (98-107) Carbon Dioxide 17 L mmol/L (22-30) Anion Gap 13 H mmol/L (4-12) BUN 35 H mg/dL (9-20) Creatinine 1.70 H mg/dL (0.7-1.3) Estim Creat Clear Calc 37 ml/min Estimated GFR 39 L (59 - ) Glucose 107 mg/dL (65-110) Calcium 10.2 mg/dL (8.4-10.2) Magnesium 2.3 mg/dL (1.6-2.3) Total Bilirubin 1.1 mg/dL (0.2-1.3) AST 28 U/L (17-59) ALT 18 U/L (6-50) Alkaline Phosphatase 85 U/L (38-126) Total Protein 8.0 g/dL (6.3-8.2) Albumin 4.8 g/dL (3.5-5.1) Patient hx anesthesia problems: none Family hx anesthesia problems: none Results Review: All pre-operative results and documents have been reviewed as part of the pre-operative evaluation. PMFSH Past Medical History Medical History Adenomatous colon polyp Pearl esophagus Congestive heart failure (CHF) EF 40 per cent Dysphagia Hiatal hernia Hyperlipemia Hypertension Osteopenia Family History Family History Father Family history of diabetes mellitus in first degree relative Family history of coronary artery disease Mother Family history of malignant neoplasm of breast in first degree relative Other Family history of arthritis Hypertension Social History Social History Smoking packs per day: 2.5 Smoking cigarettes per day: 50.0 Years smoked: 30 Smoking pack-years: 75.00 Smoking status: Never smoker Tobacco type: cigarettes Smoking end date: 03/17/94 Alcohol intake: never Substance use: never Substance use type: does not use Living arrangements: with family Occupation/Education: retired Gender identity (if verbalized by the patient): Male Spiritual care concerns: No Exam Day of Procedure 07/06/23 17:19 Patient weight: overweight Heart: regular rate and rhythm Lungs: normal air movement Airway: Mallampati scale Neurological: alert and oriented
[2023-07-06 18:18] VITALS: BP 145/90; PULSE 81; RESP 28; TEMP 36.1; O2SAT 100
--- NOTE | 2023-07-06 18:18 | P.PNAN_ITS ---
Anes - Initial Pre Proc Eval Date/Time: 07/06/23 18:18 Surgeon: Shmuel Starkey MD Pre Op Diagnosis: unable to eat for three days Patient Data Age: 78 Gender: M Height: 1.83 m Weight: 100 kg Last Vital Signs Temp 36.2 C L 07/06/23 12:43 Pulse 88 07/06/23 15:45 Resp 16 07/06/23 15:45 BP 136/77 07/06/23 15:45 Pulse Ox 100 07/06/23 15:45 Allergies Allergy/AdvReac Type Severity Reaction Status Date / Time No Known Allergies Allergy Verified 09/25/22 09:02 Home Medications Medication Instructions Recorded Confirmed Type aspirin 81 mg tablet 81 mg PO DAILY 06/10/22 07/05/22 History dapagliflozin propanediol 10 mg 10 mg PO DAILY 06/10/22 07/05/22 History tablet (Farxiga) hyoscyamine sulfate 0.125 mg 0.125 mg sublingual DAILY 06/10/22 07/05/22 History sublingual tablet oxycodone-acetaminophen 10 mg-325 10 tablet PO PRN 06/10/22 07/05/22 History mg tablet pravastatin 40 mg tablet 40 mg PO DAILY 06/10/22 07/05/22 History sacubitril 49 mg-valsartan 51 mg 49 tablet PO BID 06/10/22 07/05/22 History tablet (Entresto) metoprolol succinate 200 mg 200 mg PO DAILY 07/05/22 07/17/22 History tablet,extended release 24 hr Laboratory Tests 07/06/23 13:24 WBC 9.5 K/mm3 (4.5-10.0) RBC 3.93 L M/mm3 (4.6-6.20) Hgb 12.5 L g/dL (14.0-18.0) Hct 38.1 L % (42.0-52.0) MCV 96.9 fl (80-100) MCH 31.8 pg (26-34) MCHC 32.8 g/dl (32-36) RDW 13.8 % (11.5-14.5) Plt Count 194 k/mm3 (150-375) MPV 9.0 fl (7.4-10.4) Immature Gran % (Auto) 0.4 % (0-0.5) Neut % (Auto) 65.1 % (45.5-73.1) Lymph % (Auto) 22.6 % (18.3-44.2) [place] % (Auto) 6.7 % (2.6-8.5) Eos % (Auto) 4.6 H % (0-4.4) Baso % (Auto) 0.6 % (0.2-1.2) Lymph # (Auto) 2.15 K/mm3 (0.9-3.2) [place] # (Auto) 0.6 K/mm3 (0.1-0.6) Eos # (Auto) 0.4 H K/mm3 (0-0.3) Baso # (Auto) 0.1 K/mm3 (0.0-0.1) Abs Immat Gran (auto) 0.04 H K/mm3 (0.00-0.031) Absolute Neuts (auto) 6.2 K/mm3 (1.3-6.7) Absolute Nucleated RBC 0.000 K/mm3 (0.0-0.012) Nucleated RBC % 0.0 % (0.0-0.2) Sodium 141 mmol/L (137-145) Potassium 4.1 mmol/L (3.4-5.0) Chloride 111 H mmol/L (98-107) Carbon Dioxide 17 L mmol/L (22-30) Anion Gap 13 H mmol/L (4-12) BUN 35 H mg/dL (9-20) Creatinine 1.70 H mg/dL (0.7-1.3) Estim Creat Clear Calc 37 ml/min Estimated GFR 39 L (59 - ) Glucose 107 mg/dL (65-110) Calcium 10.2 mg/dL (8.4-10.2) Magnesium 2.3 mg/dL (1.6-2.3) Total Bilirubin 1.1 mg/dL (0.2-1.3) AST 28 U/L (17-59) ALT 18 U/L (6-50) Alkaline Phosphatase 85 U/L (38-126) Total Protein 8.0 g/dL (6.3-8.2) Albumin 4.8 g/dL (3.5-5.1) Patient hx anesthesia problems: none Family hx anesthesia problems: none Results Review: All pre-operative results and documents have been reviewed as part of the pre- operative evaluation. FORMERLY [facility] Past Medical History Medical History Adenomatous colon polyp Pearl esophagus Congestive heart failure (CHF) EF 40 per cent Dysphagia Hiatal hernia Hyperlipemia Hypertension Osteopenia Family History Family History Father Family history of diabetes mellitus in first degree relative Family history of coronary artery disease Mother Family history of malignant neoplasm of breast in first degree relative Other Family history of arthritis Hypertension Social History Social History Smoking packs per day: 2.5 Smoking cigarettes per day: 50.0 Years smoked: 30 Smoking pack-years: 75.00 Smoking status: Never smoker Tobacco type: cigarettes Smoking end date: 03/17/94 Alcohol intake: never Substance use: never Substance use type: does not use Living arrangements: with family Occupation/Education: retired Gender identity (if verbalized by the patient): Male Spiritual care concerns: No Anes - Eval Final PreProcedure Day of Procedure 07/06/23 18:18 Patient weight: overweight Heart: regular rate and rhythm Lungs: clear to auscultation Airway: Mallampati scale class II Neurological: alert and oriented Last oral intake: >/= 8 hours ASA classification: IV Emergent: yes Anesthetic plan: proceed Anesthesia type and monitoring: general GIVS and standard monitoring Results Review: All pre-operative results and documents have been reviewed as part of the pre- operative evaluation. Informed Consent: The patient's anesthetic plan and its attendant risks and benefits were discussed with the patient/family/POA. Questions were solicited and answers provided to the satisfaction of the patient/family/POA.
[2023-07-06] MEDS: LACTATED RINGERS 1,000 ML 150 ML IV CONT (18:22)
[2023-07-06 18:31] VITALS: BP 141/82; PULSE 97; RESP 24; TEMP 36.4; O2SAT 96
--- NOTE | 2023-07-06 18:31 | P.HP_ITS ---
History of Present Illness History of Present Illness Consent: Risks, benefits, and alternatives have been discussed and questions answered. Patient agrees to proceed with procedure. Chief complaint: unable to eat for three days Narrative: Nic Louis is a 78 year old male with history of high grade dysplasia Pearl's (nodular area) successfully treated with EMR in 2018 at [facility] had follow-up EGD with no residual lesion, also had dilation of site with TTS ba lloon 20mm (had mild stenosis post-EMR) later in 2017, repeat EGD 2020 and 2022 with no signs of Pearl's, dilated up to 18mm. Here with unable to eat after having pork, can not handle even own saliva. Glucagon in ER did not work and here for urgent EGD to remove food bolus. Review of Systems Review of Systems: All systems reviewed & are unremarkable except as noted in HPI and below PMFSH Past Medical History Medical History (Updated 07/06/23 @ 18:33 by Shmuel Starkey MD) Adenomatous colon polyp Pearl esophagus Congestive heart failure (CHF) EF 40 per cent Dysphagia Food impaction of esophagus Hiatal hernia Hyperlipemia Hypertension Osteopenia Family History Family History Father Family history of diabetes mellitus in first degree relative Family history of coronary artery disease Mother Family history of malignant neoplasm of breast in first degree relative Other Family history of arthritis Hypertension Social History Social History Smoking packs per day: 2.5 Smoking cigarettes per day: 50.0 Years smoked: 30 Smoking pack-years: 75.00 Smoking status: Never smoker Tobacco type: cigarettes Smoking end date: 03/17/94 Alcohol intake: never Substance use: never Substance use type: does not use Living arrangements: with family Occupation/Education: retired Gender identity (if verbalized by the patient): Male Spiritual care concerns: No Meds Home Medications and Allergies Home Medications Medication Instructions Recorded Confirmed Type aspirin 81 mg tablet 81 mg PO DAILY 06/10/22 07/06/23 History dapagliflozin propanediol 10 mg 10 mg PO DAILY 06/10/22 07/06/23 History tablet (Farxiga) hyoscyamine sulfate 0.125 mg 0.125 mg sublingual DAILY 06/10/22 07/06/23 History sublingual tablet oxycodone-acetaminophen 10 mg-325 10 tablet PO PRN 06/10/22 07/06/23 History mg tablet pravastatin 40 mg tablet 40 mg PO DAILY 06/10/22 07/06/23 History sacubitril 49 mg-valsartan 51 mg 49 tablet PO BID 06/10/22 07/06/23 History tablet (Entresto) metoprolol succinate 200 mg 200 mg PO DAILY 07/05/22 07/06/23 History tablet,extended release 24 hr Allergies Allergy/AdvReac Type Severity Reaction Status Date / Time No Known Allergies Allergy Verified 07/06/23 18:19 Vital Signs Vital Signs - 24 hr 07/06/23 12:43 07/06/23 15:45 Temperature 97.1 F L Pulse Rate 97 88 Respiratory Rate 18 16 Blood Pressure 120/81 136/77 Pulse Oximetry 100 100 Exam Const: General: comfortable and no acute distress HENMT: Face/Nose/Sinus: Normal nares present Eyes: General: appearance normal, both eyes and all related structures Neck: Neck: no JVD Resp: Auscultation: clear to auscultation bilaterally Cardio: Rate: regular rate Rhythm: regular rhythm GI: Inspection: non-distended GI Palp: Yes Soft to palpation Skin: General skin exam: normal color Neuro: General: gait normal Speech: normal speech Extrem: General: normal to inspection Psych: Mental Status: mental status grossly normal Assessment and Plan Assessment and plan (1) Dysphagia: Code(s): R13.10 - Dysphagia, unspecified Status: Acute (2) Hiatal hernia: Code(s): K44.9 - Diaphragmatic hernia without obstruction or gangrene Status: Acute (3) Food impaction of esophagus: Code(s): T18.128A - Food in esophagus causing other injury, initial encounter; W44.F3XA - Food entering into or through a natural orifice, initial encounter Status: Acute Assessment and Plan: urgent EGD
[2023-07-06 18:41] VITALS: BP 126/77; PULSE 88; RESP 18; O2SAT 98
[2023-07-06 18:51] VITALS: BP 136/68; PULSE 77; RESP 16; O2SAT 99
== END 2023-07-06 19:09 | disposition home or self-care (01) ==
LOC: ANHED 13:32 → ANHSURGERY 17:46
PROVIDERS: Emergency Provider Preventive Medicine Aerospace Medicine; PCP Internal Medicine Geriatric Medicine; Visit Provider Internal Medicine Gastroenterology
PROC: 0DJ08ZZ Inspection of Upper Intestinal Tract, Via Natural or Artificial Opening Endoscopic (ICD-10-PCS; CPT 43235; principal; 2023-07-06 18:20)
DX: T18.128A Food in esophagus causing other injury, initial encounter (principal); K22.2 Esophageal obstruction; K44.9 Diaphragmatic hernia without obstruction or gangrene; W44.F3XA Food entering into or through a natural orifice, initial encounter; I11.0 Hypertensive heart disease with heart failure; I50.9 Heart failure, unspecified; E78.5 Hyperlipidemia, unspecified; Z87.891 Personal history of nicotine dependence; D64.9 Anemia, unspecified; Z79.84 Long term (current) use of oral hypoglycemic drugs; Z79.82 Long term (current) use of aspirin; Z79.891 Long term (current) use of opiate analgesic
CPT/HCPCS: 43247; 36415; 71250; 74176; 80053; 83735; 85025; 96361; 96372; 96374; 96376; 99285; J0330; J1610; J2405; J2704; J7030; J7120

== ENCOUNTER 2023-10-08 00:24 | Day surgery (SDC) | payer MEDICARE, SELFPAY ==
[2023-09-26 11:55] VITALS: BMI 30.7
[2023-10-08 06:30] VITALS: BP 118/69; PULSE 59; RESP 18; TEMP 36.1; O2SAT 100; BMI 30.4
[2023-10-08] MEDS: LACTATED RINGERS 1,000 ML 150 ML IV CONT (06:44)
[2023-10-08 06:48] LABS: Glucose Point of Care 108 mg/dl (65-105)
--- NOTE | 2023-10-08 07:15 | WPDANESEPPF ---
Anes - Initial Pre Proc Eval Procedure: Operation Date: 10/08/23 08:00 Proposed Procedures p Esophagogastroduodenoscopy - Shmuel Starkey MD Date/Time: 10/08/23 07:15 Surgeon: Shmuel Starkey MD Pre Op Diagnosis: Dysphagia unspecified, Food in esophagus causing o Patient Data Age: 78 Gender: M Height: 1.8 m Weight: 98.8 kg Last Vital Signs Temp 96.9 F L 10/08/23 06:30 Pulse 59 L 10/08/23 06:30 Resp 18 10/08/23 06:30 BP 118/69 10/08/23 06:30 Pulse Ox 100 10/08/23 06:30 O2 Del Method Room Air 10/08/23 06:30 Allergies Allergy/AdvReac Type Severity Reaction Status Date / Time No Known Allergies Allergy Verified 10/08/23 06:27 Home Medications Medication Instructions Recorded Confirmed Type aspirin 81 mg tablet 81 mg PO DAILY 06/10/22 10/08/23 History hyoscyamine sulfate 0.125 mg 0.125 mg sublingual DAILY 06/10/22 10/08/23 History sublingual tablet oxycodone-acetaminophen 10 mg-325 10 tablet PO PRN 06/10/22 10/08/23 History mg tablet pravastatin 40 mg tablet 40 mg PO DAILY 06/10/22 10/08/23 History sacubitril 49 mg-valsartan 51 mg 49 tablet PO BID 06/10/22 10/08/23 History tablet (Entresto) omeprazole 40 mg capsule,delayed 40 mg PO DAILY #30 caps 07/06/23 10/08/23 Rx release Jardiance 25 mg BYMOUTH DAILY 09/26/23 10/08/23 History duloxetine 60 mg capsule,delayed 60 mg PO BID 09/26/23 10/08/23 History release sprinkle empagliflozin 25 mg BYMOUTH DAILY 09/26/23 10/08/23 History nebivolol 20 mg tablet 20 mg PO DAILY 09/26/23 10/08/23 History Laboratory Tests 10/08/23 06:42 POC Capillary Glucose 108 H mg/dl (65-105) Patient hx anesthesia problems: none Family hx anesthesia problems: none Results Review: All pre-operative results and documents have been reviewed as part of the pre-operative evaluation. PMFSH Past Medical History Medical History Adenomatous colon polyp Pearl esophagus Congestive heart failure (CHF) EF 40 per cent Dysphagia Food impaction of esophagus Hiatal hernia Hyperlipemia Hypertension Osteopenia Family History Family History Father Family history of diabetes mellitus in first degree relative Family history of coronary artery disease Mother Family history of malignant neoplasm of breast in first degree relative Other Family history of arthritis Hypertension Social History Social History Smoking packs per day: 2.5 Smoking cigarettes per day: 50.0 Years smoked: 30 Smoking pack-years: 75.00 Smoking status: Never smoker Tobacco type: cigarettes Smoking end date: 03/17/94 Alcohol intake: never Substance use: never Substance use type: does not use Living arrangements: with family Occupation/Education: retired Gender identity (if verbalized by the patient): Male Spiritual care concerns: No Anes - Eval Final PreProcedure Day of Procedure 10/08/23 07:15 Patient weight: obese Heart: regular rate and rhythm Lungs: clear to auscultation Airway: Mallampati scale class II Neurological: alert and oriented Last oral intake: >/= 8 hours ASA classification: III Emergent: no Anesthetic plan: proceed Anesthesia type and monitoring: general GIVS and standard monitoring Results Review: All pre-operative results and documents have been reviewed as part of the pre-operative evaluation. Informed Consent: The patient's anesthetic plan and its attendant risks and benefits were discussed with the patient/family/POA. Questions were solicited and answers provided to the satisfaction of the patient/family/POA.
--- NOTE | 2023-10-08 07:26 | PM.HPGS ---
History of Present Illness History of Present Illness Consent: Risks, benefits, and alternatives have been discussed and questions answered. Patient agrees to proceed with procedure. Chief complaint: Dysphagia unspecified, Food in esophagus causing o Narrative: Nic Louis is a 78 year old male here for another egd, last presentation 06/2023 with food bolus that required urgent EGD. He has history of high grade dysplasia Pearl's (nodular area) successfully treated with EMR in 2018 at [facility] had follow-up EGD with no residual lesion, also had dilation of site with TTS balloon 20mm (had mild stenosis post-EMR) later in 2018, repeat EGD 2020 and 2022 with no signs of Pearl's, dilated up to 18mm. Review of Systems Review of Systems: All systems reviewed & are unremarkable except as noted in HPI and below PMFSH Past Medical History Medical History Adenomatous colon polyp Pearl esophagus Congestive heart failure (CHF) EF 40 per cent Dysphagia Food impaction of esophagus Hiatal hernia Hyperlipemia Hypertension Osteopenia Family History Family History Father Family history of diabetes mellitus in first degree relative Family history of coronary artery disease Mother Family history of malignant neoplasm of breast in first degree relative Other Family history of arthritis Hypertension Social History Social History Smoking packs per day: 2.5 Smoking cigarettes per day: 50.0 Years smoked: 30 Smoking pack-years: 75.00 Smoking status: Never smoker Tobacco type: cigarettes Smoking end date: 03/17/94 Alcohol intake: never Substance use: never Substance use type: does not use Living arrangements: with family Occupation/Education: retired Gender identity (if verbalized by the patient): Male Spiritual care concerns: No Meds Home Medications and Allergies Home Medications Medication Instructions Recorded Confirmed Type aspirin 81 mg tablet 81 mg PO DAILY 06/10/22 10/08/23 History hyoscyamine sulfate 0.125 mg 0.125 mg sublingual DAILY 06/10/22 10/08/23 History sublingual tablet oxycodone-acetaminophen 10 mg-325 10 tablet PO PRN 06/10/22 10/08/23 History mg tablet pravastatin 40 mg tablet 40 mg PO DAILY 06/10/22 10/08/23 History sacubitril 49 mg-valsartan 51 mg 49 tablet PO BID 06/10/22 10/08/23 History tablet (Entresto) omeprazole 40 mg capsule,delayed 40 mg PO DAILY #30 caps 07/06/23 10/08/23 Rx release Jardiance 25 mg BYMOUTH DAILY 09/26/23 10/08/23 History duloxetine 60 mg capsule,delayed 60 mg PO BID 09/26/23 10/08/23 History release sprinkle empagliflozin 25 mg BYMOUTH DAILY 09/26/23 10/08/23 History nebivolol 20 mg tablet 20 mg PO DAILY 09/26/23 10/08/23 History Allergies Allergy/AdvReac Type Severity Reaction Status Date / Time No Known Allergies Allergy Verified 10/08/23 06:27 Vital Signs Vital Signs - 24 hr 10/08/23 06:30 Temperature 96.9 F L Pulse Rate 59 L Respiratory Rate 18 Blood Pressure 118/69 Pulse Oximetry 100 Oxygen Delivery Room Air Exam Const: General: comfortable and no acute distress HENMT: Face/Nose/Sinus: Normal nares present Eyes: General: appearance normal, both eyes and all related structures Neck: Neck: no JVD Resp: Auscultation: clear to auscultation bilaterally Cardio: Rate: regular rate Rhythm: regular rhythm GI: Inspection: non-distended GI Palp: Yes Soft to palpation Skin: General skin exam: normal color Neuro: General: gait normal Speech: normal speech Extrem: General: normal to inspection Psych: Mental Status: mental status grossly normal Assessment and Plan Assessment and plan (1) Dysphagia: Code(s): R13.10 - Dysphagia, unspecified Status: Acute Assessment and Plan: better no more episode
[2023-10-08 07:47] VITALS: BP 94/59; PULSE 58; RESP 23; O2SAT 98
[2023-10-08 07:57] VITALS: BP 104/62; PULSE 57; RESP 16; O2SAT 96
[2023-10-08 08:07] VITALS: BP 114/74; PULSE 57; RESP 22; O2SAT 98
== END 2023-10-08 08:14 | disposition home or self-care (01) ==
PROVIDERS: PCP Internal Medicine Geriatric Medicine; Visit Provider Internal Medicine Gastroenterology
PROC: 0DJ08ZZ Inspection of Upper Intestinal Tract, Via Natural or Artificial Opening Endoscopic (ICD-10-PCS; CPT 43235; principal; 2023-10-08 08:00)
DX: K22.2 Esophageal obstruction (principal); K29.70 Gastritis, unspecified, without bleeding; K44.9 Diaphragmatic hernia without obstruction or gangrene; Z87.19 Personal history of other diseases of the digestive system; I11.0 Hypertensive heart disease with heart failure; I50.9 Heart failure, unspecified; Z87.891 Personal history of nicotine dependence; Z79.82 Long term (current) use of aspirin; Z79.84 Long term (current) use of oral hypoglycemic drugs
CPT/HCPCS: 43239; 43249; 82948; 88305; C1726; J2704; J7120